=== PATIENT | female | born 1995 | race Caucasian/White ===

== ENCOUNTER 2016-07-06 03:48 | Emergency (ER) | payer OTHER ==
--- NOTE | ~2016-07-06 | CR63 ---
[facility] A Service of [facility] RADIOLOGY TEXT RESULTS PATIENT: CANDACE SHAY LOCATION: [facility] : [birth year] UNIT #: [id number] AGE: [address]: Spencer Watson SEX: F ORDER DR: [id number] [facility] [address] [facility] [place], [place] [address] [id number] MR#: [id number] Acc #: [id number] NAME: CANDACE SHAY : 1995 SEX: F STUDY DATE/TIME: 07/06/2016 5:27 UNIT: [facility] ROOM: STUDY DESCRIPTION: CR Chest 2 View Attending Physician: Spencer Watson P.A.-C. Ordering Physician: Spencer Watson P.A.-C. Primary Care Physician: No Primary Care Physician MEDICAL IMAGING REPORT This report is preliminary unless electronic signature is present EXAM PA and lateral chest. HISTORY Shortness of air, chest pain, and cough for 3 days. FINDINGS PA and lateral examination of the chest upright shows a good expansion of the parenchyma with a normal distribution of the pulmonary vascularity. There is no indication of congestion, effusion, infiltrate, tumor, or nodular density. The pleural reflections and diaphragmatic contours are normal. The cardiac silhouette and mediastinal anatomy is within normal limits. IMPRESSION Normal chest. Dictated by... Ramon Bazzi M.D. THIS IS AN ELECTRONICALLY VERIFIED REPORT Ramon Bazzi M.D. at 07/06/2016 1:24 PM ESTEPHANIA/alyson TD: 07/06/2016 09:35 JOB #: [id number] MEDICAL IMAGING REPORT Page 1 of 1 COPY
[2016-07-06 04:31] LABS: INFLUENZA A NEG (NEG); INFLUENZA B NEG (NEG)
== END 2016-07-06 05:59 | disposition home or self-care (01) ==
LOC: CED 03:48
PROVIDERS: Physician Assistant
DX: J45.901 Unspecified asthma with (acute) exacerbation (principal); J20.9 Acute bronchitis, unspecified; Z88.0 Allergy status to penicillin; Z88.2 Allergy status to sulfonamides
CPT/HCPCS: 71020; 84703; 87804; 94640; 99284